=== PATIENT | female | born 1980 | race Two or more races ===

== ENCOUNTER 2019-09-13 13:04 | Emergency (ER) | payer SELFPAY ==
[~2019-09-13] VITALS: Ht 154.9 cm; Wt 70.8 kg
[2019-09-13 13:37] LABS: Urine Bacteria NONE SEEN /hpf (None Seen); Urine Blood 3+ /uL (Negative); Urine Mucus FEW (None Seen); Urine Specific Gravity 1.022 (1.001-1.035); Urine WBC 38 /hpf (0 - 5)
[2019-09-13 13:53] LABS: Basophils # (auto) 0 10 ^3/uL (0-0.2); Eosinophils # (auto) 0.1 10 ^3/uL (0-0.8); Eosinophils % (auto) 1.7 % (0.0-7.0); Hematocrit 30.9 % (36.0-46.0); Hemoglobin 10.7 g/dL (12.2-16.2); Lymphocytes # (auto) 1.8 10 ^3/uL (0.4-5.4); Lymphocytes % (auto) 35.7 % (10.0-50.0); Mean Corpuscular Hemoglobin 29.5 pg (28.0-32.0); Mean Corpuscular Hgb Conc. 34.6 g/dL (32.0-36.0); Mean Corpuscular Volume 85.3 fL (80.0-100.0); Monocytes # (auto) 0.4 10 ^3/uL (0-1.3); Monocytes % (auto) 7.7 % (0.0-12.0); Neutrophils # (auto) 2.8 10 ^3/uL (1.6-8.6); Neutrophils % (auto) 53.9 % (37.0-80.0); Platelet Count (auto) 320 10^3/uL (140-450); Red Blood Cells 3.62 10^6/uL (4.0-5.20); Red Cell Distribution Width 12.8 % (11.8-14.3); White Blood Cell 5.1 10^3/uL (4.4-10.8)
[2019-09-13 14:11] LABS: Albumin 4.1 g/dL (3.4-5.0); Calcium 9.2 mg/dL (8.5-10.1); Potassium 4.1 mmol/L (3.5-5.1)
[2019-09-13 14:16] LABS: BUN/Creatinine Ratio 17.2; Bilirubin, Total 0.4 mg/dL (0.2-1.0); Total Protein 7.9 g/dL (6.4-8.2)
[2019-09-13 15:43] LABS: INR 1.07 (0.9-1.15); Partial Thromboplastin Time 24.2 sec (23.64-32.05)
[2019-09-13 16:43] VITALS: BP 112/60
== END 2019-09-13 17:17 | disposition home or self-care (01) ==
LOC: ER 13:04
DX: N93.8 Other specified abnormal uterine and vaginal bleeding (principal); N39.0 Urinary tract infection, site not specified
CPT/HCPCS: 36415; 74176; 80053; 81001; 81025; 85025; 85610; 85730

== ENCOUNTER 2023-12-31 23:01 | Emergency (ER) | payer MEDICAID ==
[~2023-12-31 23:01] MED LIST: PRED20TA2 PO; TRIO1TP EX
[2024-01-01] MEDS ORDERED: CEPH500C PO (01:28)
[2024-01-01] MEDS ORDERED: MUPI2OIN2 EX (01:28)
[2024-01-01] MEDS: NEOMYCIN-BACITRACIN-POLYM UNITDOSE PKG TOP OINT TOP ONE (01:30)
[2024-01-01] MEDS: TETANUS-DIPTH-ACEL PERTUSSIS 0.5ML SYR Tdap IM ONE (02:02)
[2024-01-01 02:08] VITALS: BP 132/74; PULSE 76; RESP 18; TEMP 98.4; O2SAT 99
== END 2024-01-01 02:20 | disposition home or self-care (01) ==
LOC: ER 23:01
DX: S61.217A Laceration without foreign body of left little finger without damage to nail, initial encounter (principal); S61.215A Laceration without foreign body of left ring finger without damage to nail, initial encounter; W45.8XXA Other foreign body or object entering through skin, initial encounter; Y93.89 Activity, other specified; Y92.89 Other specified places as the place of occurrence of the external cause; Y99.8 Other external cause status
CPT/HCPCS: 12002

== ENCOUNTER 2024-07-01 17:07 | Emergency (ER) | payer MEDICAID ==
[~2024-07-01] VITALS: Ht 157.5 cm; Wt 70.0 kg
[~2024-07-01 17:07] MED LIST changes: +CEPH500C PO; +MUPI2OIN2 EX
--- NOTE | 2024-07-01 18:56 | ED.PDOC ---
General HPI Comments 43Y F with PMHx UTI presents to ED for chief complaint LLQ abd pain x4days with lt flank pain, nausea, fatigue, and hematuria. Pt took 4 Tylenol pills at home and did not experience relief of symptoms. Pt denies chest pain, SOB, and dysuria. Pt states she experienced similar symptoms 6 years ago and was dx with a UTI at that time. Chief Complaint: Abdominal Pain Time Seen by MD: 18:43 Primary Care Provider: DENIES Reviewed notes: Nurses Notes, Medications, Allergies Allergies: Coded Allergies: NO KNOWN ALLERGIES (Unverified , 08/16/15) Home Meds Active Scripts Mupirocin (Pseudomonas Fluores (Mupirocin) 2 % Oin, 1 APPLIC EX TID, #15 GM Prov:MORALES,NORALDA Q PUBLIC SPEAKER 01/01/24 Cephalexin Monohydrate (Cephalexin) 500 Mg Cap, 1 CAP PO QID for 10 Days, #40 CAP Prov:MORALESNORALDA Q PUBLIC SPEAKER 01/01/24 Triamcinolone Acetonide (Triamcinolone Acetonide) 0.1 % Cre, 0.1 % EX BID PRN for 7 Days, #1 CRE Prov:CHAVA MORRIS CANE LOADER 01/24/23 Prednisone (Prednisone) 20 Mg Tab, 60 MG PO DAILY for 3 Days, #9 MG Prov:CHAVA MORRIS CANE LOADER 01/24/23 Information Source: Patient Mode of Arrival: Ambulatory Severity: Mild Timing: Days Duration: Since onset Onset: Spontaneous Symptoms: Hematuria History of: UTI Location: (L)Flank Modifying factors: None associated signs and symptoms: Abdominal Pain, Nausea, Flank Pain, Hematuria Past Medical History PAST MEDICAL HISTORY: UTI'S Surgical History: Denies all surgeries PROJECT MANAGER SENIOR History: No Pertinent PROJECT MANAGER SENIOR History Family History Family History: Reviewed,noncontributory to illness Social History Smoker: Non-Smoker Alcohol: Denies ETOH Use Drugs: Denies Drug Use Lives In: Home Constitutional: reports: fatigue; denies: chills, diaphoresis, fever, malaise, sweats, weakness, others EENTM: denies: blurred vision, double vision, ear bleeding, ear discharge, ear drainage, ear pain, ear ringing, eye pain, eye redness, hearing loss, mouth pain, mouth swelling, nasal discharge, nose bleeding, nose congestion, nose pain, photophobia, tearing, throat pain, throat swelling, voice changes, others Respiratory: denies: cough, hemoptysis, orthopnea, SOB at rest, shortness of breath, SOB with excertion, stridor, wheezing, others Cardiovascular: denies: chest pain, dizzy spells, diaphoresis, Dyspnea on exertion, edema, irregular heart beat, left arm pain, lightheadedness, palpitations, PND, syncope, others Gastrointestinal: reports: abdominal pain (LLQ), nausea; denies: abdomen distended, blood streaked bowels, constipated, diarrhea, dysphagia, difficulty swallowing, hematemesis, melena, poor appetite, poor fluid intake, rectal bleeding, rectal pain, vomiting, others Genitourinary: reports: flank pain (left), hematuria; denies: abnormal vagina bleeding, burning, dyspareunia, dysuria, frequency, incontinence, pain, , vagina discharge, urgency, others Neurological: denies: dizziness, fainting, headache, left sided numbness, left sided weakness, numbness, paresthesia, pre-existing deficit, right sided numbness, right sided weakness, seizure, speech problems, tingling, tremors, weakness, others Musculoskeletal: denies: back pain, gout, joint pain, joint swelling, muscle pain, muscle stiffness, neck pain, others Integumetry: denies: bruises, change in color, change in hair/nails, dryness, laceration, lesions, lumps, rash, wounds, others Allergic/Immunocompromised: denies: Difficulty Healing, Frequent Infections, Hives, Itching, others Hematologic/Lymphatic: denies: anemia, blood clots, easy bleeding, easy bruising, swollen glands, others Endocrine: denies: excessive hunger, excessive sweating, excessive thirst, excessive urination, flushing, intolerance to cold, intolerance to heat, unexplained weight gain, unexplained weight loss, others Psychiatric: denies: anxiety, bipolar disorder, depression, hopeless, panic disorder, schizophrenia, sleepless, suicidal, others All Other Systems: Reviewed and Negative Physical Exam General Appearance: No Apparent Distress, Normal HEENT: Normal ENT Inspection, Pharynx Normal, TMs Normal Neck: Full Range of Motion, Non-Tender, Normal, Normal Inspection Respiratory: Chest Non-Tender, Lungs Clear, No Accessory Muscle Use, No Respiratory Distress, Normal Breath Sounds Cardiovascular: No Edema, No JVD, No Murmur, No Gallop, Normal Peripheral Pulses, Regular Rate/Rhythm Breast Exam: Deferred Gastrointestinal: LLQ, No Organomegaly, No Pulsatile Mass, Normal Bowel Sounds, Tenderness Genitalia: Deferred Pelvic: Deferred Rectal: Deferred Extremities: No calf tenderness, Normal capillary refill, Normal inspection, Normal range of motion, Non-tender, No pedal edema Musculoskeletal : Apperance: Normal Neurologic: Alert, java golden gate developer II-XII nml as Tested, No Motor Deficits, Normal Affect, Normal Mood, No Sensory Deficits Cerebellar Function: NOT DONE Reflexes: NOT DONE Skin: Dry, Normal Color, Warm Lymphatic: No Adenopathy Was a procedure done? Was a procedure done?: No Differential Diagnosis Kidney stone (Female): Musculoskeletal pain, Pyelonephritis, Urinary obstruction, Urolithiasis Kidney stone (Male): N/A Penile/Scrotal: N/A Urinary Problem (Male): N/A Urinary Problem (Female): UTI X-Ray, Labs, Meds, VS Vital Signs Date Time Temp Pulse Resp B/P (MAP) Pulse Ox O2 Delivery O2 Flow Rate FiO2 07/01/24 17:25 97.8 67 18 118/42 (67) 100 Lab Test 07/01/24 19:48 07/01/24 18:45 Range/Units White Blood Count 9.0 4.4-10.8 10^3/uL Red Blood Count 4.14 4.0-5.20 10^6/uL Hemoglobin 10.5 L 12.2-16.2 g/dL Hematocrit 32.3 L 36.0-46.0 % Mean Corpuscular Volume 78.2 L 80.0-100.0 fL Mean Corpuscular Hemoglobin 25.4 L 28.0-32.0 pg Mean Corpuscular Hemoglobin Concent 32.5 32.0-36.0 g/dL Red Cell Distribution Width 15.0 H 11.8-14.3 % Platelet Count 396 140-450 10^3/uL Mean Platelet Volume 7.4 6.9-10.8 fL Neutrophils (%) (Auto) 85.5 H 37.0-80.0 % Lymphocytes (%) (Auto) 10.4 10.0-50.0 % Monocytes (%) (Auto) 2.7 0.0-12.0 % Eosinophils (%) (Auto) 0.7 0.0-7.0 % Basophils (%) (Auto) 0.7 0.0-2.0 % Neutrophils # (Auto) 7.7 1.6-8.6 10 ^3/uL Lymphocytes # (Auto) 0.9 0.4-5.4 10 ^3/uL Monocytes # (Auto) 0.2 0-1.3 10 ^3/uL Eosinophils # (Auto) 0.1 0-0.8 10 ^3/uL Basophils # (Auto) 0.1 0-0.2 10 ^3/uL Nucleated Red Blood Cells 0.0 % Sodium Level 139 136-145 mmol/L Potassium Level 4.5 3.5-5.1 mmol/L Chloride Level 108 H 98-107 mmol/L Carbon Dioxide Level 25 20-31 mmol/L Anion Gap 6 5-15 Blood Urea Nitrogen 16 9-23 mg/dL Creatinine 0.80 0.550-1.02 mg/dL Glomerular Filtration Rate Calc 95 >90 mL/min BUN/Creatinine Ratio 20.0 10.0-20.0 Serum Glucose 120 H 74-106 mg/dL Calcium Level 9.7 8.7-10.4 mg/dL Urine Color Light-red Yellow Urine Clarity Ex.turbid Clear Urine pH 5.0 5.0-9.0 Urine Specific Walker 1.047 H 1.001-1.035 Urine Protein 2+ H Negative Urine Ketones 1+ H Negative Urine Blood 3+ H Negative /uL Urine Nitrite Negative Negative Urine Bilirubin Negative Negative Urine Urobilinogen Normal Negative mg/dL Urine Leukocyte Esterase 1+ Negative /uL Urine RBC 8814 0 - 4 /hpf Urine WBC 362 0 - 5 /hpf Urine WBC Clumps Present None Seen /hpf Urine Squamous Epithelial Cells None seen <5 /hpf Urine Bacteria None seen None Seen /hpf Urine Mucus Few None Seen Urine Glucose Normal Normal mg/dL Urine Test Negative Negative [facility] [id number] [place] [id number] Ph: [phone] DIAGNOSTIC IMAGING Diagnostic Imaging Report : [id number] Signed PATIENT: LOULOU PELLETIER ACCT: [id number] UNIT: [id number] : 1980 LOC: ER ROOM / BED: / AGE / SEX: 43 / F ADM STATUS: REG ER SERVICE 39 ORDERING PHYSICIAN: KAREL MONTOYA MD PROCEDURE(s): ABPL - CT AB PEL WO CON-NO ORAL OR IV REASON: left flank pain ORDER NUMBER(s): [id number], ACCESSION NUMBER(s): [id number] Exam: CT CT AB PEL WO CON-NO ORAL OR IV History: left flank pain Comparison Study: None available at time of dictation. TECHNIQUE: Multidetector CT of the abdomen was performed from lung bases to pubic symphysis. Imaging was performed without IV contrast. Axial, coronal and sagittal multiplanar reformats were obtained from the axial data set by the technologist. Radiation Dose Information: CT Dose: CTDI volume is 6.65 mGy. Dose-length product is 368.5 mGy*cm FINDINGS: Evaluation of solid organs is limited due to lack of intravenous contrast use. Findings: Lung Bases: No acute or significant lung base finding. Normal heart size. No pleural or pericardial effusion. Liver: The liver is normal in size. No focal lesions. Gallbladder and Biliary Tree: Unremarkable Spleen: Unremarkable Pancreas: The pancreas is grossly normal in appearance. Adrenal Glands: Unremarkable Kidneys: Kidneys are grossly normal without calculi or hydronephrosis. Bladder: Grossly unremarkable for degree of distention. Bowel: The stomach is grossly normal in appearance. Small bowel and colon are normal in caliber and distribution. The appendix is not visualized; however, no secondary findings of acute appendicitis identified. Ascites: Absent Lymphadenopathy: No mesenteric, retroperitoneal or periportal lymphadenopathy. Abdominal Wall and Mesentery: Unremarkable. Vasculature: The visualized abdominal aorta is normal in size and caliber. Evaluation of abdominal and pelvic vessels is limited due to lack of intravenous contrast. Pelvic Organs: Unremarkable Musculoskeletal: No aggressive focal bony lesions, acute fractures or dislocation. Soft tissues: Unremarkable IMPRESSION: 1. No acute abdominal or pelvic finding. 2. No nephrolithiasis or hydronephrosis bilaterally. 3. No ureteral calculi or bladder calculi. Radiation optimization: All CT scans at this facility use at least one of these dose optimization techniques: automated exposure control mA and/or kV adjustment per patient size (includes targeted exams where dose is matched to clinical indication) or iterative reconstruction. ATED BY: PETRUZZO,SAYDA T Jr. DO DICTATED DATE/TIME: 07/01/242202 SIGNED BY: SAYDA YAO Jr., SIGNED DATE/TIME: 07/01/242202 CC: Time of 1ST Reevaluation: 19:13 Reevaluation 1ST: Unchanged Patient Education/Counseling: Diagnosis, Treatment Family Education/Counseling: No Family Present Departure 1 Departure Time of Disposition: 22:17 (Patient presented with abdominal pain that was concerning for possible appendicits, gastritis, cholecystitis, colitis, gastroenteritis, or orther possible surgical emergency. Data: 1. I ordered and reviewed the result of at least 3 labs including a CBC, BMP, and Urinalysis. 2. I independently interpreted the following tests: CT Abdoment and Pelvis is concerning for benign abdomen .Risk:This patient has a high risk of morbidity due to further diagnostic testing or treatment and may suffer from an acute abdominal process disorder. Fortunately workup reveals pyelonephritis and patient can be safely discharged to home with outpatient follow up.) Impression: Primary Impression: Acute pyelonephritis Disposition: HOME / SELF CARE / HOMELESS Condition: Stable Additional Instructions: You have a urinary tract infection. You were prescribed antibiotics. Please take as directed. You can take Tylenol Motrin as needed for pain. It is important that he follow up with the regular doctor within 1 week to ensure you are doing better. If your symptoms worsen or you have any other concerns then please return to the emergency room. e-Prescriptions Cefdinir (Cefdinir) 300 Mg Cap 1 CAP PO BID for 7 Days, #14 CAP Prov: KAREL MONTOYA MD 07/01/24 Discharged With: Self Critical Care Note Critical Care Time?: No Stability Stability form required: No Heart Score Heart Score: Heart Score Response (Comments) Value History N/A 0 EKG N/A 0 Age N/A 0 Risk Factors N/A 0 Troponin N/A 0 Total 0 I personally scribed for KAREL MONTOYA MD (TRAM) on 07/01/24 at 18:56. Electronically submitted by Angela Garcias ([place]). I personally scribed for KAREL MONTOYA MD (TRAM) on 07/01/24 at 22:12. Electronically submitted by Angela Garcias ([place]). KAREL MONTOYA MD Jul 01, 2024 18:56
[2024-07-01 19:09] LABS: Urine Bacteria None Seen /hpf (None Seen)
[2024-07-01 19:36] LABS: Urine Blood 3+ /uL (Negative); Urine Clarity Ex.Turbid (Clear); Urine Color Light-Red (Yellow); Urine Mucus FEW (None Seen); Urine Protein, UAD 2+ (Negative); Urine Specific Gravity 1.047 (1.001-1.035); Urine Squamous Epithelial Cell None Seen /hpf (<5); Urine Urobilinogen Normal (Negative); Urine WBC 362 /hpf (0 - 5); Urine WBC Clumps PRESENT /hpf (None Seen)
[2024-07-01 20:23] LABS: Basophils # (auto) 0.1 10 ^3/uL (0-0.2); Basophils % (auto) 0.7 % (0.0-2.0); Eosinophils # (auto) 0.1 10 ^3/uL (0-0.8); Eosinophils % (auto) 0.7 % (0.0-7.0); Hematocrit 32.3 % (36.0-46.0); Hemoglobin 10.5 g/dL (12.2-16.2); Lymphocytes # (auto) 0.9 10 ^3/uL (0.4-5.4); Lymphocytes % (auto) 10.4 % (10.0-50.0); Mean Corpuscular Hemoglobin 25.4 pg (28.0-32.0); Mean Corpuscular Hgb Conc. 32.5 g/dL (32.0-36.0); Mean Corpuscular Volume 78.2 fL (80.0-100.0); Monocytes # (auto) 0.2 10 ^3/uL (0-1.3); Monocytes % (auto) 2.7 % (0.0-12.0); Neutrophils # (auto) 7.7 10 ^3/uL (1.6-8.6); Neutrophils % (auto) 85.5 % (37.0-80.0); Platelet Count (auto) 396 10^3/uL (140-450); Red Blood Cells 4.14 10^6/uL (4.0-5.20)
[2024-07-01 20:31] LABS: Potassium 4.5 mmol/L (3.5-5.1); Sodium 139 mmol/L (136-145)
[2024-07-01 20:32] LABS: Anion Gap 6 (5-15); Calcium 9.7 mg/dL (8.7-10.4); Carbon Dioxide 25 mmol/L (20-31)
[2024-07-01 20:37] LABS: Blood Urea Nitrogen 16 mg/dL (9-23)
[2024-07-01 21:03] LABS: Chloride 108 mmol/L (98-107); Glucose 120 mg/dL (74-106)
[2024-07-01] MEDS: cefTRIAXone W LIDOCAINE 1 GM IM IM ONE (21:45)
--- NOTE | 2024-07-01 22:06 | DVH ---
Exam: CT CT AB PEL WO CON-NO ORAL OR IV History: left flank pain Comparison Study: None available at time of dictation. TECHNIQUE: Multidetector CT of the abdomen was performed from lung bases to pubic symphysis. Imaging was performed without IV contrast. Axial, coronal and sagittal multiplanar reformats were obtained fr om the axial data set by the technologist. Radiation Dose Information: CT Dose: CTDI volume is 6.65 mGy. Dose-length product is 368.5 mGy*cm FINDINGS: Evaluation of solid organs is limited due to lack of intravenous contrast use. Findings: Lung Bases: No acute or significant lung base finding. Normal heart size. No pleural or pericardial effusion. Liver: The liver is normal in size. No focal lesions. Gallbladder and Biliary Tree: Unremarkable Spleen: Unremarkable Pancreas: The pancreas is grossly normal in appearance. Adrenal Glands: Unremarkable Kidneys: Kidneys are grossly normal without calculi or hydronephrosis. Bladder: Grossly unremarkable for degree of distention. Bowel: The stomach is grossly normal in appearance. Small bowel and colon are normal in caliber and d istribution. The appendix is not visualized; however, no secondary findings of acute appendicitis id entified. Ascites: Absent Lymphadenopathy: No mesenteric, retroperitoneal or periportal lymphadenopathy. Abdominal Wall and Mesentery: Unremarkable. Vasculature: The visualized abdominal aorta is normal in size and caliber. Evaluation of abdominal a nd pelvic vessels is limited due to lack of intravenous contrast. Pelvic Organs: Unremarkable Musculoskeletal: No aggressive focal bony lesions, acute fractures or dislocation. Soft tissues: Unremarkable IMPRESSION: 1. No acute abdominal or pelvic finding. 2. No nephrolithiasis or hydronephrosis bilaterally. 3. No ureteral calculi or bladder calculi. Radiation optimization: All CT scans at this facility use at least one of these dose optimization olinda hniques: automated exposure control mA and/or kV adjustment per patient size (includes targeted exam s where dose is matched to clinical indication) or iterative reconstruction.
[2024-07-01] MEDS ORDERED: CEFD300C2 PO (22:18)
[2024-07-01] MEDS: LIDOCAINE 1% HCL (LOCAL ANESTH.) INJ 20ML MDV IJ ONE (22:53)
[2024-07-01] MEDS: cefTRIAXone SOD 1,000 MG VL IM ONE (22:54)
[2024-07-01 22:59] VITALS: BP 129/78; PULSE 70; RESP 18; TEMP 98.6; O2SAT 100
== END 2024-07-01 23:02 | disposition home or self-care (01) ==
LOC: ER 17:07
DX: N10 Acute pyelonephritis (principal); Z87.440 Personal history of urinary (tract) infections; Z32.02 Encounter for pregnancy test, result negative
CPT/HCPCS: 36415; 74176; 80048; 81001; 81025; 85025; 96372; 99285; J0696; J2003